=== PATIENT | male | born 1980 | race Caucasian/White ===

== ENCOUNTER 2017-08-06 02:07 | Emergency (ER) | payer MEDICAID ==
[~2017-08-06] VITALS: Ht 175.3 cm; Wt 76.4 kg
[2017-08-06] MEDS ORDERED: normal saline 1000ML IV soln IVB ONE (02:15)
[2017-08-06] MEDS ORDERED: metoclopramide 5 mg/ml inj IV ONE (02:15)
[2017-08-06 02:37] LABS: BASOPHILS % (AUTO) 0.5 % (0-1); EOSINOPHILS # (AUTO) 0.3 X10'3 (0-0.9); EOSINOPHILS % (AUTO) 3.6 % (0-6); HEMATOCRIT 43.3 % (42.0-52.0); HEMOGLOBIN 14.8 g/dl (14.0-17.9); LYMPHOCYTES # (AUTO) 3.2 X10'3 (1.1-4.8); MEAN CORPUSCULAR HEMOGLOBIN 31.4 PG (27.0-31.0); MEAN CORPUSCULAR HGB CONC 34.3 % (33.0-36.5); MEAN CORPUSCULAR VOLUME 91.7 FL (78-98); MEAN PLATELET VOLUME 7.7 FL (7.4-10.4); MONOCYTES # (AUTO) 0.5 X10'3 (0-0.9); MONOCYTES % (AUTO) 6.1 % (2-12); NEUTROPHILS # (AUTO) 4.3 X10'3 (1.8-7.7); NEUTROPHILS % (AUTO) 51.8 % (42-75); PLATELET COUNT 340 X10'3 (140-440); RED BLOOD COUNT 4.72 X10'6 (4.70-6.10); RED CELL DISTRIBUTION WIDTH 14.7 % (11.5-14.5); WHITE BLOOD COUNT 8.3 X10'3 (4.5-11.0)
[2017-08-06 02:44] LABS: CLARITY,URINE CLEAR (Clear); COLOR,URINE YELLOW (Yellow); GLUCOSE, URINE NEGATIVE (Neg); KETONES,URINE NEGATIVE (Neg); LEUKOCYTE ESTERASE ,URINE NEGATIVE (Neg); NITRITES, URINE NEGATIVE (Neg); OCCULT BLOOD,URINE NEGATIVE (Neg); PH,URINE 5.5 (4.8-8.0); PROTEIN,URINE NEGATIVE (Neg); UROBILINOGEN,URINE 0.2 E.U/dL (0.2-1.0)
[2017-08-06 02:49] LABS: UA COLLECTION TYPE CLN CATCH MIDSTREAM
[2017-08-06 02:53] LABS: URINE AMPHETAMINE SCREEN NEGATIVE (Neg); URINE BARBITUATE SCREEN NEGATIVE (Neg); URINE BENZODIAZEPINES SCREEN NEGATIVE (Neg); URINE CANNABINOID SCREEN NEGATIVE (Neg); URINE COCAINE SCREEN NEGATIVE (Neg); URINE METHADONE SCREEN NEGATIVE (Neg); URINE OPIATE SCREEN NEGATIVE (Neg); URINE PHENCYCLIDINE SCREEN NEGATIVE (Neg)
[2017-08-06 02:54] LABS: ALANINE AMINOTRANSFERASE 49 U/L (12-78); ALBUMIN/GLOBULIN RATIO 0.9 (1.1-1.5); ALKALINE PHOSPHATASE 86 IU/L (46-116); ANION GAP 15 (8-16); ASPARTATE AMINO TRANSFERASE 24 U/L (10-37); BILIRUBIN,TOTAL 0.1 MG/DL (0.1-1.0); BLOOD UREA NITROGEN 10 MG/DL (7-18); BUN/CREATININE RATIO 9.1 (5.4-32.0); CALCIUM 8.6 MG/DL (8.5-10.1); CHLORIDE 104 MMOL/L (99-107); ETHANOL 0.292 GM/DL (0.0-0.010); GLUCOSE 180 MG/DL (70-104); POTASSIUM 3.4 MMOL/L (3.5-5.1); SODIUM 142 MMOL/L (135-145); TOTAL CARBON DIOXIDE 23.4 MMOL/L (24-32); TOTAL PROTEIN 8.6 G/DL (6.4-8.2); eGFR 75 ML/MIN
[2017-08-06 08:45] VITALS: BP 137/66
== END 2017-08-06 08:47 | disposition home or self-care (01) ==
LOC: ER 02:07
DX: F10.129 Alcohol abuse with intoxication, unspecified (principal); Z02.89 Encounter for other administrative examinations
CPT/HCPCS: 36415; 71045; 80053; 80305; 80320; 81003; 85025; 96361; 96374; 99284; A4353; J2765; J7030

== ENCOUNTER 2017-08-20 23:31 | Emergency (ER) | payer MEDICAID ==
[~2017-08-20] VITALS: Ht 175.3 cm; Wt 68.0 kg
[2017-08-21] MEDS ORDERED: PRED10TA23 PO (02:07)
[2017-08-21 02:20] VITALS: BP 113/67
== END 2017-08-21 02:25 | disposition home or self-care (01) ==
LOC: ER 23:32
DX: L23.7 Allergic contact dermatitis due to plants, except food (principal); F17.200 Nicotine dependence, unspecified, uncomplicated; Z79.899 Other long term (current) drug therapy
CPT/HCPCS: 99283

== ENCOUNTER 2017-10-09 18:33 | Emergency (ER) | payer MEDICAID ==
[~2017-10-09] VITALS: Ht 175.3 cm; Wt 66.3 kg
[2017-10-09 18:40] VITALS: BP 134/81
[2017-10-09] MEDS ORDERED: HYDR-565 PO (19:41)
[2017-10-09] MEDS ORDERED: PENI500T2 PO (19:41)
== END 2017-10-09 19:47 | disposition home or self-care (01) ==
LOC: ER 18:34
DX: K04.7 Periapical abscess without sinus (principal); Z79.2 Long term (current) use of antibiotics; Z79.899 Other long term (current) drug therapy
CPT/HCPCS: 99283

== ENCOUNTER 2018-04-15 21:49 | Emergency (ER) | payer MEDICAID ==
[~2018-04-15] VITALS: Ht 170.2 cm; Wt 89.0 kg
[2018-04-15 22:11] VITALS: BP 126/87
== END 2018-04-15 22:12 ==
LOC: ER 21:50
DX: Z04.1 Encounter for examination and observation following transport accident (principal); V87.7XXA Person injured in collision between other specified motor vehicles (traffic), initial encounter; Y93.89 Activity, other specified; Y92.410 Unspecified street and highway as the place of occurrence of the external cause; Y99.8 Other external cause status
CPT/HCPCS: 99283

== ENCOUNTER 2019-09-20 06:57 | Day surgery (SDC) | payer MEDICAID ==
[2019-09-13 12:54] LABS: BASOPHILS # (AUTO) 0.1 X10'3 (0-0.2); BASOPHILS % (AUTO) 0.8 % (0-1); EOSINOPHILS # (AUTO) 0.2 X10'3 (0-0.9); EOSINOPHILS % (AUTO) 2.7 % (0-6); LYMPHOCYTES % (AUTO) 22.1 % (21-51); MEAN CORPUSCULAR HGB CONC 34.2 g/dL (33.0-36.5); MEAN CORPUSCULAR VOLUME 90.7 FL (78-98); MEAN PLATELET VOLUME 8.9 FL (7.4-10.4); MONOCYTES # (AUTO) 0.8 X10'3 (0-0.9); MONOCYTES % (AUTO) 8.7 % (2-12); NEUTROPHILS # (AUTO) 5.8 X10'3 (1.8-7.7); NEUTROPHILS % (AUTO) 65.7 % (42-75); PRE OP HEMATOCRIT 45.2 % (42.0-52.0); PRE OP HEMOGLOBIN 15.5 g/dL (14.0-17.9); PRE OP PLATELET COUNT 254 X10'3 (140-440); RED BLOOD COUNT 4.98 X10'6 (4.70-6.10); RED CELL DISTRIBUTION WIDTH 14.6 % (11.5-14.5)
[2019-09-13 13:12] LABS: ALBUMIN 3.6 G/DL (3.4-5.0); ALBUMIN/GLOBULIN RATIO 0.8 (1.1-1.5); ALKALINE PHOSPHATASE 93 IU/L (46-116); BLOOD UREA NITROGEN 12 MG/DL (7-18); BUN/CREATININE RATIO 12.8 (5.4-32.0); CALCIUM 9.5 MG/DL (8.5-10.1); CHLORIDE 100 MMOL/L (99-107); CREATININE 0.94 MG/DL (0.60-1.10); PRE OP ANION GAP 8 (8-16); PRE OP AST 90 U/L (10-37); PRE OP BILIRUB, TOTAL 0.5 MG/DL (0.0-1.0); PRE OP GLUCOSE 127 MG/DL (70-104); PRE OP POTASSIUM 4.4 MMOL/L (3.4-5.1); PRE OP SODIUM 134 MMOL/L (135-145); TOTAL PROTEIN 8.3 G/DL (6.4-8.2); eGFR 89 ML/MIN
[2019-09-13 13:17] LABS: PRE OP ALT 129 U/L (30-65)
[2019-09-20] VITALS (15 sets, daily range): BP systolic 118–153; BP diastolic 68–96
[~2019-09-20] VITALS: Ht 175.3 cm; Wt 73.1 kg
[~2019-09-20 06:57] MED LIST: BUPIVAcaine/PF 2.5 mg/ml (0.25%) 30ml vial ONE; LIDOcaine 1% 30ml preserv. free vial ONE; NO HOME MEDS; ceFAZolin 2gm in dextrose, iso 50 ML IV ONE; famotidine 20mg tablet PO ONE; ringers solution, lacted 1,000 ML IV SCH
[2019-09-20] MEDS ORDERED: ringers solution, lacted 1,000 ML IV SCH (08:01)
[2019-09-20] MEDS ORDERED: meperidine/PF 25mg/ml syringe IV PRN ×2 (08:05)
[2019-09-20] MEDS ORDERED: morphine 2 MG/ML inj. syringe IV PRN (08:05)
[2019-09-20] MEDS ORDERED: morphine 4 MG/ML inj SYRINge IV PRN (08:05)
[2019-09-20] MEDS ORDERED: ondansetron/PF 4mg/2ml inj IV PRN (08:05)
[2019-09-20] MEDS ORDERED: proCHLORperazine 10 MG/2 ml inj IV PRN (08:05)
[2019-09-20] MEDS ORDERED: rocuronium 10mg/ml inj IV ONE (08:49)
[2019-09-20] MEDS ORDERED: fentaNYL/PF 50MCG/1 ML 2ML syringe ONE (08:49)
[2019-09-20] MEDS ORDERED: midazolam 2 mg/2 ml injection ONE (08:49)
[2019-09-20] MEDS ORDERED: propofol inj 20 ML IV ONE (08:49)
[2019-09-20] MEDS ORDERED: sevoflurane 250ml liquid IH ONE (08:51)
[2019-09-20] MEDS ORDERED: dexamethasone sod phosphate 4mg/ml inj. ONE (09:02)
[2019-09-20] MEDS ORDERED: ondansetron/PF 4mg/2ml inj ONE (10:21)
[2019-09-20] MEDS ORDERED: neostigmine methylsulfate 1 MG/ML 10ml vial ONE (10:22)
[2019-09-20] MEDS ORDERED: glycopyrrolate 0.2mg/ml inj ONE (10:22)
--- NOTE | 2019-09-20 10:39 | NUR ---
Received from OR via , accompanied by Anesthesiologist DR PANDA and report given by Anesthesiolgist. PT VERY DROWSY, NO S/S OF DISTRESS/DISCOMFORT, ABDOMEN W/3 LAP SITES W/BANDAIDS CDI. Addendum: 09/20/19 at 1127 by Zina Mckeon RN Amended: Links added.
[2019-09-20] MEDS ORDERED: HYDROcodone/acetaminophen 10/325mg tab PO PRN (10:40)
[2019-09-20] MEDS: meperidine/PF 25mg/ml syringe IV PRN ×2 (11:36→11:48)
--- NOTE | 2019-09-20 13:39 | NUR ---
D/C INSTRUCTIONS GIVEN AND GONE OVER W/PT WHO VERBALIZED UNDERSTANDING, PAIN TOLERABLE, PT VOIDED. PT D/CD TO HOME VIA W/C TO PRIVATE VEHICLE W/O INCIDENT. Addendum: 09/20/19 at 1355 by Zina Mckeon RN Amended: Links added.
== END 2019-09-20 13:39 | disposition home or self-care (01) ==
LOC: PAS 06:57
PROVIDERS: ATTEND Surgery
DX: K42.0 Umbilical hernia with obstruction, without gangrene (principal); K40.30 Unilateral inguinal hernia, with obstruction, without gangrene, not specified as recurrent; D17.6 Benign lipomatous neoplasm of spermatic cord; F17.210 Nicotine dependence, cigarettes, uncomplicated; J45.909 Unspecified asthma, uncomplicated; Z91.09 Other allergy status, other than to drugs and biological substances; Z79.899 Other long term (current) drug therapy; Z11.59 Encounter for screening for other viral diseases; Z72.89 Other problems related to lifestyle; Z82.49 Family history of ischemic heart disease and other diseases of the circulatory system; Z83.3 Family history of diabetes mellitus
CPT/HCPCS: 36415; 49587; 49650; 80053; 82948; 85025; 93005; C1781; J1100; J2001; J2175; J2250; J2270; J2405; J2704; J2710; J3010; J3490; J7120; S2900; U0003; A4215; A4618

== ENCOUNTER 2020-12-07 12:43 | Emergency (ER) | payer MEDICAID ==
[~2020-12-07] VITALS: Ht 172.7 cm; Wt 77.0 kg
[~2020-12-07 12:43] MED LIST changes: -BUPIVAcaine/PF 2.5 mg/ml (0.25%) 30ml vial ONE; -LIDOcaine 1% 30ml preserv. free vial ONE; -ceFAZolin 2gm in dextrose, iso 50 ML IV ONE; -famotidine 20mg tablet PO ONE; -ringers solution, lacted 1,000 ML IV SCH
[2020-12-07 12:46] VITALS: BP 142/85
== END 2020-12-07 14:41 | disposition home or self-care (01) ==
LOC: ER 12:44
DX: S50.02XA Contusion of left elbow, initial encounter (principal); I10 Essential (primary) hypertension; X50.9XXA Other and unspecified overexertion or strenuous movements or postures, initial encounter; Y93.89 Activity, other specified; Y92.89 Other specified places as the place of occurrence of the external cause; Y99.8 Other external cause status
CPT/HCPCS: 29105; 73080; 99283